=== PATIENT | female | born 1950 | race Caucasian/White ===

== ENCOUNTER 2020-11-16 23:46 | Emergency (ER) | payer MEDICARE ==
[2020-11-17 01:23] LABS: HEMOGLOBIN 9.4 gm/dl (12.3-15.3); RED BLOOD COUNT 2.63 M/UL (4.00-5.10); WHITE BLOOD COUNT 3.9 K/UL (4.5-11.0)
[2020-11-17 01:44] LABS: BUN/CREATININE RATIO 37 (0-10)
== END 2020-11-17 08:39 | disposition short-term general hospital (02) ==
LOC: ER1 23:46
PROVIDERS: Family Medicine
DX: G93.40 Encephalopathy, unspecified (principal); N39.0 Urinary tract infection, site not specified; D61.818 Other pancytopenia; E72.20 Disorder of urea cycle metabolism, unspecified; Z87.738 Personal history of other specified (corrected) congenital malformations of digestive system
CPT/HCPCS: 36600; 70450; 71045; 80053; 80307; 81001; 82140; 82550; 82553; 82803; 83605; 83735; 83874; 84439; 84443; 84484; 85025; 85610; 93005; 96374; 99285; G0480; J0696